=== PATIENT | male | born 1970 | race Caucasian/White ===

== ENCOUNTER → 2017-04-04 | Outpatient (CLI) | payer BC ==
--- NOTE | 2017-04-04 10:22 | KCIC ---
MRI study of the left knee without contrast Clinical indications: Left knee injury. Patient has had left knee pain for one month but felt a pop in the left knee 1 week ago. TECHNIQUE: Noncontrast MRI sequences left knee were performed in all 3 planes. COMPARISON: None available. FINDINGS: The anterior and posterior cruciate ligaments are intact. The quadriceps and patellar tendons are intact. There is mild prepatellar soft tissue edema without significant distention of the prepatellar bursa. The patella is normally aligned. 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 There is mild chondromalacia patellae involving the lateral patellar facet. There is moderate chondromalacia of the trochlear groove. The medial and lateral retinacular ligaments are intact. There is moderate chondromalacia with articular cartilage defect and flap of the lateral portion of the weightbearing aspect of the articular cartilage of the medial femoral condyle. There is mild degenerative spurring of the medial tibial femoral joint compartment. Mild chondromalacia of the lateral tibial femoral joint compartment is seen with mild degenerative spurring. No significant articular cartilage defect of this joint compartment is seen. No bone contusion or fracture or marrow infiltrative process is seen. There is degenerative signal abnormality of the medial meniscus. There is a tear of the root ligament attachment of the posterior horn of the medial meniscus. The lateral meniscus is intact. The medial collateral ligament is intact and no meniscocapsular separation is seen. The lateral collateral ligament complex and iliotibial band and popliteus tendon are intact. No posterior lateral corner injury is seen. Small nondistended Wooten's cyst is seen. Minimal joint effusion is seen. No loose osteochondral body is seen. No muscle edema is seen. Impression: Tear of the root ligament attachment of the posterior horn of the medial meniscus. Moderate chondromalacia with articular cartilage defect and flap of the medial femoral condyle. Mild chondromalacia of the lateral tibial femoral joint compartment. 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 Electronically signed by: Angel Sher MD (04/04/2017 10:19 AM) [id number]
== END | disposition home or self-care (01) ==
LOC: KCIC MRI 07:43
PROVIDERS: ATTEND Family Medicine
DX: S83.8X2A Sprain of other specified parts of left knee, initial encounter (principal); S89.92XA Unspecified injury of left lower leg, initial encounter; X58.XXXA Exposure to other specified factors, initial encounter; Y93.89 Activity, other specified; Y92.89 Other specified places as the place of occurrence of the external cause; Y99.8 Other external cause status
CPT/HCPCS: 73721